=== PATIENT | male | born 1950 | race Caucasian/White ===

== ENCOUNTER → 2020-05-29 16:50 | Outpatient (BNVA) | payer OTHER, MEDICARE, SELFPAY | PROVIDERS: Visit Provider Nurse Practitioner Family | DX: Z20.828 Contact with and (suspected) exposure to other viral communicable diseases (principal); J06.9 Acute upper respiratory infection, unspecified | CPT/HCPCS: 87635 ==

== ENCOUNTER → 2021-01-01 12:51 | Outpatient (BNVA) | payer MEDICARE, SELFPAY | PROVIDERS: Visit Provider Nurse Practitioner Family | DX: Z20.822 Contact with and (suspected) exposure to COVID-19 (principal) | CPT/HCPCS: 87635 ==

== ENCOUNTER 2021-10-10 11:37 | Outpatient (RCR) | payer OTHER, MEDICARE, SELFPAY | END 2021-10-22 23:59 | disposition home or self-care (01) | LOC: SPT 11:37 | PROVIDERS: Referring Provider Family Medicine; Visit Provider Family Medicine | DX: R42 Dizziness and giddiness (principal) | CPT/HCPCS: 95992; 97112; 97162 ==

== ENCOUNTER 2021-10-23 06:00 | Outpatient (RCR) | payer OTHER, SELFPAY | END 2021-11-21 23:59 | disposition home or self-care (01) | LOC: SPT 06:00 | PROVIDERS: Referring Provider Family Medicine; Visit Provider Family Medicine | DX: R42 Dizziness and giddiness (principal) | CPT/HCPCS: 97112 ==